=== PATIENT | female | born 1950 | race Caucasian/White ===

== ENCOUNTER 2023-01-07 21:57 | Emergency (ER) | payer MEDICARE, BC, SELFPAY ==
[2023-01-07 22:03] VITALS: BP 163/81; PULSE 67; RESP 18; TEMP 36.1; O2SAT 98; BMI 24.3
--- NOTE | 2023-01-07 22:29 | CRLHL7_ITS ---
For Patients: As a result of the Century Cures Act, medical imaging exams and procedure reports are released immediately into your electronic medical record. You may view this report before your referring provider. If you have questions, please contact your health care provider. INDICATION: Cramping, pain, constipation. TECHNIQUE: CT abdomen and pelvis acquired with 67 mL Isovue 370 contrast. COMPARISON: CT abdomen/pelvis dated 06/30/2019. FINDINGS: Lower chest: No focal consolidation. Liver: No suspicious focal hepatic lesion. Gallbladder and bile ducts: Unremarkable. Pancreas: Unremarkable. Spleen: Unremarkable. Adrenal glands: Unremarkable. Kidneys: Kidneys enhance symmetrically, without hydronephrosis. Too small to characterize hypodense bilateral renal lesions. Punctate nonobstructing calculus in the lower pole of the left kidney. Retroperitoneum: No lymphadenopathy. Bowel and mesentery: Several loops of mildly dilated fluid-filled small bowel in the lower abdomen and pelvis with fecalization, compatible with small bowel obstruction. Transition point is at the mid pelvis. Mild mesenteric edema, likely reactive. No pneumoperitoneum. Bladder: Unremarkable for degree of distension. Reproductive organs: Posthysterectomy. Pelvic lymph nodes: No lymphadenopathy. Vessels: Few scattered atherosclerotic calcifications. Abdominal wall: No acute abdominal wall abnormality. Bones: Multilevel degenerative changes of the spine. No suspicious/aggressive focal osseous lesion. Stable grade 1 anterolisthesis of L4 on L5. IMPRESSION: Several loops of mildly dilated fluid-filled small bowel in the lower abdomen and pelvis with fecalization, compatible with small bowel obstruction. Transition point is at the mid pelvis. Please note that all CT scans at this facility use dose modulation, iterative reconstruction, and/or weight-based dosing when appropriate to reduce radiation dose to as low as reasonably achievable. Dictated by Aminta Solorio MD @ 01/08/2023 12:35:57 AM (Electronically Signed)
--- NOTE | 2023-01-07 22:35 | ED_ITS ---
HPI - General Adult General Chief complaint: Abdominal Pain Stated complaint: bowel obstruction Time Seen by Provider: 01/07/23 22:01 Source: patient Mode of arrival: ambulatory Limitations: no limitations History of Present Illness HPI narrative: 72-year-old female with multiple prior small-bowel obstructions presents to the emergency department for evaluation of mid abdominal pain that started about 5 hours ago. Pain is located periumbilical and diffuse. It is intermittent. It is accompanied by some mild nausea but no vomiting. She had 2 small bowel movements earlier today but they felt incomplete. No diarrhea. No blood in her stools. No fever. No trauma or injury. Last bowel obstruction was a couple of years ago. She has had several bowel obstructions, typically every couple years since 1989. She has had multiple abdominal surgeries and has a history of endometriosis. She has had ovarian cystectomies and hysterectomy. Her 1st bowel obstruction did require lysis of adhesions to correct. Subsequent bowel obstructions in the last 30+ years have not required additional surgeries. She rarely requires an NG tube. Reports that symptoms tend to improve with IV fluid within 24 hours. She has multiple drug allergies, multiple food allergies. No other systemic symptoms today. No recent changes in medications. No recent fever or antibiotic use. No dysuria or gynecological changes. Did not try any interventions at home prior to coming to ED. Past medical history notable for the multiple small-bowel obstructions, no other chronic medical problems. No long-term prescription medications. Multiple allergies noted. Last bowel obstruction appears to be in 2019, notes reviewed. Nonsmoker. ROS notable for the GI symptoms as above, otherwise denies times 12 systems. Related Data Home Medications Medication Instructions Recorded Confirmed No Known Home Medications 01/07/23 01/07/23 Allergies Allergy/AdvReac Type Severity Reaction Status Date / Time cephalexin Allergy Intermediate Hives Verified 01/07/23 23:38 Cephalosporins Allergy Intermediate Rash Verified 01/07/23 23:38 coconut oil Allergy Intermediate Hives Verified 01/07/23 23:38 palm oil Allergy Intermediate Hives Verified 01/07/23 23:38 peanut oil Allergy Intermediate Hives Verified 01/07/23 23:38 trazodone Allergy Intermediate Rash/hives Verified 01/07/23 23:38 aspirin Allergy Mild Hives Verified 01/07/23 23:38 cantaloupe Allergy Mild Hives Verified 01/07/23 23:38 melon Allergy Mild Hives Verified 01/07/23 23:38 morphine Allergy Mild feels jumpy Verified 01/07/23 23:38 nut - unspecified Allergy Mild Hives Verified 01/07/23 23:38 peanut Allergy Mild Hives Verified 01/07/23 22:12 strawberry Allergy Mild Hives Verified 01/07/23 23:38 Sulfa (Sulfonamide Allergy Mild Hives Verified 01/07/23 23:38 Antibiotics) watermelon Allergy Mild Hives Verified 01/07/23 23:38 Menthyl salicylate Allergy Intermediate Hives Uncoded 01/07/23 23:38 Peanut-containing Drug Allergy Intermediate Hives Uncoded 01/07/23 23:38 Products Peanut-derived Allergy Intermediate Hives Uncoded 01/07/23 23:38 MANY FOOD AND ENVIRONMENTAL Allergy Mild Unknown Uncoded 01/07/23 23:38 ALLERGIES PFSH [facility] Medical History Health care directive on file ?Z78.9 - Other specified health status (ICD-10) Social History Smoking Status: Never smoker Do you use any of these nicotine containing products: None Second hand tobacco smoke exposure: No How often do you have a drink containing alcohol: never AUDIT-C Alcohol total score: 0 Non-prescribed substance use: denies use Exam Const: Vital Signs, click to edit/add: Vital Signs - 24 hr 01/07/23 22:03 Temperature 97.0 F L Pulse Rate [Pulse Oximeter] 67 Respiratory Rate 18 Blood Pressure [Le ft Upper Arm] 163/81 H Pulse Oximetry 98 Oxygen Delivery Me thod Room Air Documenting provider has reviewed patient's vital signs: yes Common normals: no apparent distress General appearance: cooperative and well kempt HENMT: Common normals: normocephalic Head and scalp: normocephalic Mouth: oral and palatal mucosa normal Eye: Common normals: conjunctivae normal General eye: normal appearance of both eyes Conjunctiva: conjunctiva(e) normal Resp: Common normals: normal respiratory effort, no use of accessory muscles and clear to auscultation bilaterally Effort & inspection: able to speak in complete sentences Auscultation: clear to auscultation bilaterally Cardio: Common normals: regular rate, regular rhythm, S1 normal heart sound, S2 normal heart sound and no murmurs Rate: regular rate Rhythm: regular rhythm Heart sounds: S1 normal and S2 normal GI: Other: Bowel sounds sound hypoactive overall. Mild diffuse tenderness but no rebound tenderness or guarding. No obvious mass. Liver and spleen are not enlarged. Neuro: Speech: speech normal Motor exam: strength 5/5 throughout and no movement abnormalities noted Psych: Appearance: well kempt Attitude: engaged Activity/motor behavior: appropriate eye contact Insight: insight good Judgement: judgment good Skin: Common normals: no rashes or lesions noted General skin exam: no rashes or lesions noted Course Course ED Course: Likely small bowel obstruction. Since her pain is rather diffuse and she has required surgical reduction in the past, do recommend CT scan. Will start an IV line, basic intra-abdominal labs, CT scan of the abdomen and pelvis. Will give Zofran and Dilaudid for pain control and await findings. Will likely need admission if small bowel obstruction. Reevaluation(s) Time of Reevaluation #1: 01:05 Reevaluation #1: Discussed CT findings with patient. Recommended hospitalization, she declines. Feeling much better after IV fluid and she says that she feels like things are starting to open up. She has manage these at home before. She plans to put herself on a clear liquid diet. She declines Zofran or pain medication to have at home. She understands the risks and benefits and expresses these verbally to me. She will come back to the ED if there is any significant worsening in the interim. All questions answered. Vital Signs Vital signs: Initial Vital Signs Temperature 97.0 F L 01/07/23 22:03 Temperature Source Temporal Artery Scan 01/07/23 22:03 Pulse Rate 67 01/07/23 22:03 Respiratory Rate 18 01/07/23 22:03 Blood Pressure 163/81 H 01/07/23 22:03 Blood Pressure Mean 108 H 01/07/23 22:03 Blood Pressure Position Sitting 01/07/23 22:03 Pulse Oximetry 98 01/07/23 22:03 Oxygen Delivery Method Room Air 01/07/23 22:03 Vital Signs Temperature 97.0 F L 01/07/23 22:03 Pulse Rate 67 01/07/23 22:03 Respiratory Rate 18 01/07/23 22:03 Blood Pressure 163/81 H 01/07/23 22:03 Pulse Oximetry 98 01/07/23 22:03 Oxygen Delivery Method Room Air 01/07/23 22:03 Temperature 97.0 F L 01/07/23 22:03 Pulse Rate 67 01/07/23 22:03 Respiratory Rate 18 01/07/23 22:03 Blood Pressure 163/81 H 01/07/23 22:03 Pulse Oximetry 98 01/07/23 22:03 Oxygen Delivery Method Room Air 01/07/23 22:03 Medical Decision Making Lab Data Lab results reviewed: Yes I reviewed the patient's lab results Lab results narrative: No leukocytosis, normal CRP. Normal electrolytes and renal function. Overall very reassuring. Labs: Lab Results 01/07/23 Range/Units 22:45 WBC 7.17 (4.50-11.00) K/uL RBC 4.59 (4.00-5.20) m/uL Hgb 14.0 (12.0-16.0) gm/dL Hct 42.2 (33.0-51.0) % MCV 92 (80-100) fL MCH 31 (26-34) pg MCHC 33 (32-36) gm/dL RDW Coeff of Aicha 13.0 (11.5-15.5) % Plt Count 179 (140-440) K/uL Neut % (Auto) 62.4 (42.0-72.0) % Lymph % (Auto) 27.3 (20-44) % [place] % (Auto) 7.8 (0.0-11.0) % Eos % (Auto) 1.8 (0.0-7.0) % Baso % (Auto) 0.1 (0.0-3.0) % Neut # (Auto) 4.47 (1.7-7.0) K/uL Lymph # (Auto) 1.96 (0.90-2.90) K/uL [place] # (Auto) 0.60 (0.00-0.90) K/UL Eos # (Auto) 0.13 (0.00-0.50) K/uL Baso # (Auto) 0.01 (0.00-0.30) K/uL Abs Immat Gran (auto) 0.04 (0.00-0.30) K/uL Imm/Tot Granulo (auto) 0.6 % Sodium 139 (135-149) mmol/L Potassium 4.3 (3.6-5.1) mmol/L Chloride 102 (96-114) mmol/L Carbon Dioxide 29 (20-32) mmol/L Anion Gap 8 (7-15) mEq/L BUN 25 (7-30) mg/dL Creatinine 0.7 (0.5-1.5) mg/dL Estimated Creat Clear 40.83 Estimated GFR 91 ml/min Glucose 102 (60-115) mg/dL Calcium 9.8 (8.4-10.6) mg/dL Total Bilirubin 0.5 (0.1-1.5) mg/dL AST 27 (12-35) U/L ALT 20 (4-35) U/L Alkaline Phosphatase 73 (40-150) U/L C-Reactive Protein < 0.5 L (0.5-1.0) mg/dL Total Protein 7.6 (6.0-8.3) g/dL Albumin 4.4 (3.3-5.0) g/dL Lipase 81 (23-300) U/L Imaging Data CT scan - abdomen: Attestation: I have reviewed the pertinent imaging results. My impression: Mild SBO Radiologist's impression: IMPRESSION: Several loops of mildly dilated fluid-filled small bowel in the lower abdomen and pelvis with fecalization, compatible with small bowel obstruction. Transition point is at the mid pelvis. Discharge Plan Discharge Clinical Impression: SBO (small bowel obstruction) Patient Disposition: Home w/ Parent or Adult Condition: Improved Instructions: Bowel Obstruction (ED) Additional Instructions: I have recommended hospitalization which you have declined. Your given IV fluid, nausea medicine and pain medication. I am glad that these were helpful. You let me know that you do not want medication to have at home. He will stay on your clear liquid diet. He will come back to the emergency department if there is any clinical worsening in the meantime especially if fevers, significant vomiting, bloody stools or severe weakness. Activity Level: Activity as Tolerated Discharge Diet: Clear Liquid Prescriptions: No Action No Known Home Medications Follow Up/Referrals: Clarita Vale MD [Primary Care Provider] - Stand Alone Forms: [employer] [facility] Info Instructions
[2023-01-07] MEDS: HYDROmorphone 0.5 mg/0.5 ml inj IVP (22:50)
[2023-01-07] MEDS: ONDANSETRON 2 MG/ML inj 4 MG IVP (22:50)
[2023-01-07] MEDS: LACTATED RINGERS 1000 ML 1,000 ML IV (22:50)
[2023-01-07 23:00] VITALS: BP 150/64; PULSE 62; RESP 18; O2SAT 96
[2023-01-07 23:08] LABS: Albumin* 4.4 g/dL (3.3-5.0); Chloride* 102 mmol/L (96-114)
[2023-01-07 23:09] LABS: Potassium* 4.3 mmol/L (3.6-5.1); Sodium* 139 mmol/L (135-149)
[2023-01-07 23:11] LABS: Alkaline Phosphatase* 73 U/L (40-150); Anion Gap 8 mEq/L (7-15); Aspartate Amino Transferase* 27 U/L (12-35); Bilirubin Total* 0.5 mg/dL (0.1-1.5); Carbon Dioxide* 29 mmol/L (20-32); Creatinine* 0.7 mg/dL (0.5-1.5); Est. Creatinine Clearance* 40.83; Estimated Glomerular Filt Rate 91 ml/min; Lipase* 81 U/L (23-300); Total Protein* 7.6 g/dL (6.0-8.3)
[2023-01-07 23:12] LABS: Alanine Aminotransferase* 20 U/L (4-35); Blood Urea Nitrogen* 25 mg/dL (7-30); Calcium* 9.8 mg/dL (8.4-10.6); Glucose* 102 mg/dL (60-115)
[2023-01-07 23:15] LABS: C Reactive Protein* < 0.5 mg/dL (0.5-1.0)
[2023-01-07 23:20] LABS: Basophils Absolute Auto 0.01 K/uL (0.00-0.30); Basophils Percent Auto 0.1 % (0.0-3.0); Eosinophils Absolute Auto 0.13 K/uL (0.00-0.50); Eosinophils Percent Auto 1.8 % (0.0-7.0); Hematocrit 42.2 % (33.0-51.0); Immature Granulocytes Abs Auto 0.04 K/uL (0.00-0.30); Immature Granulocytes Pct Auto 0.6 %; Lymphocytes Absolute Auto 1.96 K/uL (0.90-2.90); Lymphocytes Percent Auto 27.3 % (20-44); Mean Corpuscular HGB Conc 33 gm/dL (32-36); Mean Corpuscular Hemoglobin 31 pg (26-34); Mean Corpuscular Volume 92 fL (80-100); Monocytes Percent Auto 7.8 % (0.0-11.0); Neutrophils Absolute Auto 4.47 K/uL (1.7-7.0); Neutrophils Percent Auto 62.4 % (42.0-72.0); Platelet Count* 179 K/uL (140-440); Red Blood Count 4.59 m/uL (4.00-5.20); White Blood Count* 7.17 K/uL (4.50-11.00)
[2023-01-07 23:25] LABS: Slide Review Reflex No
[2023-01-07 23:30] VITALS: BP 135/65; PULSE 56; RESP 18; O2SAT 96
[2023-01-08] VITALS: BP 140/53; PULSE 64; RESP 18; O2SAT 98
[2023-01-08 00:30] VITALS: BP 132/61; PULSE 60; RESP 18; O2SAT 96
[2023-01-08 01:00] VITALS: BP 111/44; PULSE 56; RESP 18; O2SAT 100
== END 2023-01-08 01:29 | disposition home or self-care (01) ==
LOC: ED 01-08 01:25
PROVIDERS: Emergency Provider Family Medicine; PCP Family Medicine
DX: K56.690 Other partial intestinal obstruction (principal)
CPT/HCPCS: 36415; 74177; 80053; 83690; 85025; 86140; 96374; 96375; 99284; J1170; J2405; J7120; Q9967

== ENCOUNTER 2024-03-26 09:59 | Outpatient (CLI) | payer MEDICARE, BC, SELFPAY ==
--- NOTE | 2024-03-26 10:15 | MR_ITS ---
[address] [address] Phone:?[phone] Fax:?[phone] Referring Physician Information: Misha Herrera M.D. [id number] [facility] [address] Phone:?[phone] Fax:?[phone] Patient:Kayce Caba D.O.B:?1950 Sex:?Female Phone:?[phone] [facility] MRN:?[id number] Exam Date:?03/26/2024 EXAM: MRI OF THE RIGHT SHOULDER CLINICAL INFORMATION: The patient is a 73-year-old with right shoulder pain. Evaluate for rotator cuff tear. PRIOR SURGERY: None reported. COMPARISON STUDIES: There are no prior studies available for comparison. TECHNICAL INFORMATION: Using a 1.5T MR scanner and a localizing shoulder surface coil: 3.0 mm?coronal obliques: PD, T2, STIR 3.0 mm?sagittal obliques: PD, T2 3.0 mm?axials: PD, T2 FINDINGS: Articular/Extraarticular collections: Effusion: Moderate. Subacromial/subdeltoid: Mild to moderate fluid is seen within the subacromial/subdeltoid bursa, in keeping with changes of bursitis. Subcoracoid: No evidence for bursitis. Osseous structures: Proximal humerus: Cortical irregularity and subcortical cystic change can be seen involving the greater tuberosity region, in keeping with the rotator cuff pathology discussed below. There is no evidence for greater or lesser tuberosity fracture. No Hill-Sachs or reverse Hill-Sachs lesion is identified. Glenoid: No acute bony abnormality of the glenoid fossa or glenoid neck can be seen. Acromioclavicular joint: Moderate changes of acromioclavicular joint arthrosis are present and can be seen on sagittal series 8 image 13. Coracoacromial arch: Acromion morphology: Type I. No evidence for os acromiale. Acromiohumeral space: There is thickening of the coracoacromial ligament at the acromial attachment with moderate narrowing of the acromiohumeral space. Coracohumeral space: Within normal limits. Rotator cuff and deltoid: Supraspinatus: Moderate changes of supraspinatus tendinosis are present. There is superimposed full-thickness tearing of the distal tendon fibers seen on coronal series 5 image 13 and on sagittal series 9 image 7. The area of tearing measures 13 mm in anteroposterior dimension and 15 mm in mediolateral dimension. No atrophic changes of the supraspinatus muscle belly are identified. Infraspinatus: Moderate infraspinatus tendinosis can be seen. There is no evidence for full or partial-thickness tearing. Atrophic changes of the infraspinatus muscle belly are seen on sagittal series 8 image 25. Teres minor: No evidence for tendinosis, tearing, or associated muscle belly atrophy. Subscapularis: Moderate subscapularis tendinosis can be seen. There is no evidence for full or partial-thickness tearing. No atrophic changes of the subscapularis muscle belly are noted. Deltoid: No evidence for strain or tearing. Biceps tendon: The intra-articular and biceps sulcus portions of the biceps tendon are normal. There is no evidence for rupture, dislocation, or subluxation. Glenohumeral joint and labrum: Articular Cartilage: No chondral injuries along the articular surfaces of the glenohumeral articulation can be seen. No osteoarthritic changes are identified. Labrum: The anterior, posterior, superior, and inferior portions of the labrum appear intact. No evidence for paralabral ganglion cyst formation can be seen. Capsular Soft Tissues: There is nonspecific thickening of the capsular structures of the glenohumeral articulation in the region of the axillary recess and rotator cuff interval. The findings may relate to changes of adhesive capsulitis. CONCLUSION: 1. Moderate supraspinatus, infraspinatus, and subscapularis tendinosis. There is superimposed full-thickness tearing of the distal supraspinatus tendon fibers as described above. 2. Moderate acromioclavicular joint arthrosis with moderate narrowing of the acromiohumeral space. 3. No osteoarthritic changes of the glenohumeral articulation are seen. 4. No definite injuries to the glenoid labrum or long head of the biceps can be seen. 5. Moderate glenohumeral joint effusion and mild to moderate subacromial/subdeltoid bursitis. 6. Nonspecific capsular thickening, possibly related to adhesive capsulitis. AEC Electronically signed on 03/27/2024 6:52:00 AM by Boo Hubbard M.D.
== END 2024-03-26 10:00 | disposition home or self-care (01) ==
LOC: MRI 10:00
PROVIDERS: PCP Family Medicine; Visit Provider Orthopaedic Surgery Sports Medicine
DX: M25.511 Pain in right shoulder (principal); M75.101 Unspecified rotator cuff tear or rupture of right shoulder, not specified as traumatic; M19.011 Primary osteoarthritis, right shoulder; M25.411 Effusion, right shoulder; M75.51 Bursitis of right shoulder
CPT/HCPCS: 73221